=== PATIENT | female | born 1995 | race Caucasian/White ===

== ENCOUNTER 2019-12-31 19:02 | Emergency (ER) | payer OTHER ==
[2020-01-01] MEDS ORDERED: TORADOL PO ×2 (00:23→10:16)
[2020-01-01] MEDS ORDERED: ORPHENADRINE100 MG PO ×2 (00:23→10:16)
[2020-01-01 00:40] VITALS: BP 112/73
== END 2020-01-01 00:58 | disposition home or self-care (01) ==
LOC: ED 19:02
DX: M54.6 Pain in thoracic spine (principal)

== ENCOUNTER 2020-08-25 18:37 | Emergency (ER) | payer OTHER ==
[~2020-08-25] VITALS: Ht 172.7 cm; Wt 57.0 kg
[~2020-08-25 18:37] MED LIST: ORPHENADRINE100 MG PO; TORADOL PO
[2020-08-25 20:02] LABS: URINE BILIRUBIN - DIPSTICK NEGATIVE (NEGATIVE); URINE BLOOD DIPSTICK TRACE-LYSED (NEGATIVE); URINE COLOR YELLOW; URINE GLUCOSE - DIPSTICK NEGATIVE (NEGATIVE); URINE KETONE NEGATIVE (NEGATIVE); URINE NITRITE - DIPSTICK NEGATIVE (Negative); URINE PROTEIN - DIPSTICK NEGATIVE (NEG-TRACE); URINE SPECIFIC GRAVITY 1.025; URINE UROBILINOGEN - DIPSTICK 0.2 E.U./dL (0.2)
[2020-08-25 20:08] LABS: HEMATOCRIT 44.3 % (37.0-47.0); HEMOGLOBIN 14.5 g/dl (12.0-16.0); IMMATURE GRANULOCYTES 0.3 % (0.0-5.0); MEAN CELL VOLUME 91.3 fL CALC (80.0-100.0); MEAN CORPUSCULAR HGB 29.9 pG CALC (26.0-32.0); MEAN CORPUSCULAR HGB CONC 32.7 g/dL CAL (32.0-36.0); NEUT# 14.84 thou/uL (2.00-7.15); RED BLOOD COUNT 4.85 mill/uL (4.20-5.60); RED CELL DISTRI WIDTH 12.2 % (11.5-15.5)
[2020-08-25 20:12] LABS: URINE LEUK ESTERASE SMALL (NEGATIVE)
[2020-08-25 20:19] LABS: URINE RBC 0-2 RBC/hpf (0-5); URINE SQUAMOUS EPITHELIAL CELL FEW EPI/hpf (0-FEW)
[2020-08-25 20:24] LABS: ALBUMIN 4.8 g/dL (3.2-5.0); ALKALINE PHOSPHATASE 58 u/l (38-126); AMYLASE 73 u/l (30-110); ANION GAP 15 (6-22 (CALC)); BILIRUBIN, TOTAL 1.5 mg/dL (0.0-1.4); BUN 16 mg/dL (7-17); BUN/CREATININE RATIO 22 (12-20 (CALC)); CARBON DIOXIDE 25 mmol/l (22-30); CHLORIDE 103 mmol/l (95-108); CREATININE 0.7 mg/dL (0.5-1.0); GFR > 60 ML/MIN (>=60 (CALC)); GFR FOR AFR.AMER. > 60 ML/MIN (>=60 (CALC)); POTASSIUM 3.9 mmol/l (3.5-5.1); SGOT/AST 23 u/l (14-36); SODIUM 139 mmol/l (137-146); TOTAL PROTEIN 7.6 g/dL (6.3-8.2)
[2020-08-25] MEDS ORDERED: CIPROFLOXACN500 MG PO (22:36)
[2020-08-25 23:10] VITALS: BP 97/74
== END 2020-08-25 23:10 | disposition home or self-care (01) ==
LOC: ED 18:37
PROVIDERS: Emergency Medicine
DX: R11.2 Nausea with vomiting, unspecified (principal); N39.0 Urinary tract infection, site not specified; Z20.822 Contact with and (suspected) exposure to COVID-19

== ENCOUNTER 2021-08-28 19:50 | Emergency (ER) | payer OTHER ==
[~2021-08-28] VITALS: Ht 172.7 cm; Wt 65.0 kg
[~2021-08-28 19:50] MED LIST changes: +CIPROFLOXACN500 MG PO
[2021-08-28 23:38] LABS: HEMATOCRIT 41.8 % (37.0-47.0); HEMOGLOBIN 13.6 g/dl (12.0-16.0); IMMATURE GRANULOCYTES 0.1 % (0.0-5.0); MEAN CELL VOLUME 92.3 fL CALC (80.0-100.0); MEAN CORPUSCULAR HGB CONC 32.5 g/dL CAL (32.0-36.0); NEUT# 4.25 thou/uL (2.00-7.15); RED BLOOD COUNT 4.53 mill/uL (4.20-5.60); RED CELL DISTRI WIDTH 12.1 % (11.5-15.5)
[2021-08-28 23:41] LABS: URINE BILIRUBIN - DIPSTICK NEGATIVE (NEGATIVE); URINE BLOOD DIPSTICK NEGATIVE (NEGATIVE); URINE COLOR YELLOW; URINE GLUCOSE - DIPSTICK NEGATIVE (NEGATIVE); URINE KETONE NEGATIVE (NEGATIVE); URINE PH 6.5 (4.5-8.0); URINE UROBILINOGEN - DIPSTICK 0.2 E.U./dL (0.2)
[2021-08-28 23:48] LABS: URINE LEUK ESTERASE SMALL (NEGATIVE); URINE NITRITE - DIPSTICK NEGATIVE (Negative); URINE PROTEIN - DIPSTICK NEGATIVE (NEG-TRACE)
[2021-08-28 23:51] LABS: URINE EPITHELIAL CELLS FEW EPI/hpf (0-FEW); URINE RBC 0-2 RBC/hpf (0-5)
[2021-08-28 23:52] LABS: ALBUMIN 4.6 g/dL (3.2-5.0); ALKALINE PHOSPHATASE 66 u/l (38-126); ANION GAP 14 (6-22 (CALC)); BUN 14 mg/dL (7-17); BUN/CREATININE RATIO 18 (12-20 (CALC)); CARBON DIOXIDE 24 mmol/l (22-30); CHLORIDE 105 mmol/l (95-108); CREATININE 0.8 mg/dL (0.5-1.0); GFR > 60 ML/MIN (>=60 (CALC)); GFR FOR AFR.AMER. > 60 ML/MIN (>=60 (CALC)); POTASSIUM 3.6 mmol/l (3.5-5.1); SGOT/AST 21 u/l (14-36); SODIUM 139 mmol/l (137-146); TOTAL PROTEIN 7.6 g/dL (6.3-8.2); URINE BACTERIA MODERATE hpf
[2021-08-28 23:57] LABS: BILIRUBIN, TOTAL 0.5 mg/dL (0.0-1.4)
[2021-08-29 00:05] LABS: MYOGLOBIN 22 ng/mL (0 - 62)
[2021-08-29 00:55] LABS: ACT PARTIAL THROMBO TIME 24.6 SECONDS (20.0-32.5); PROTHROMBIN TIME 10.6 SECONDS (9.0-12.5)
[2021-08-29 00:59] LABS: D-DIMER 0.17 mg/L (0.19-0.60)
[2021-08-29] MEDS ORDERED: MECLIZINE25 MG PO (01:11)
[2021-08-29 01:20] VITALS: BP 100/50
== END 2021-08-29 01:25 | disposition home or self-care (01) ==
LOC: ED 19:50
PROVIDERS: Family Medicine
DX: R42 Dizziness and giddiness (principal)

== ENCOUNTER 2022-11-08 16:53 | Emergency (ER) | payer OTHER ==
[2022-11-08] VITALS (7 sets, daily range): BP systolic 95–125; BP diastolic 57–80
[~2022-11-08] VITALS: Ht 172.7 cm; Wt 59.0 kg
[~2022-11-08 16:53] MED LIST changes: +MECLIZINE25 MG PO
[2022-11-08] MEDS ORDERED: IBUPROFEN600 MG PO (18:17)
[2022-11-08] MEDS ORDERED: FLEXERIL5 M1 PO (18:17)
[2022-11-08] MEDS ORDERED: VOLTAREN1%GEL TOP (18:17)
== END 2022-11-08 18:31 | disposition home or self-care (01) ==
LOC: ED 16:53
DX: M54.6 Pain in thoracic spine (principal); F17.200 Nicotine dependence, unspecified, uncomplicated

== ENCOUNTER 2023-01-20 14:58 | Emergency (ER) | payer OTHER ==
[~2023-01-20] VITALS: Ht 172.7 cm; Wt 58.0 kg
[~2023-01-20 14:58] MED LIST changes: +FLEXERIL5 M1 PO; +IBUPROFEN600 MG PO; +VOLTAREN1%GEL TOP
[2023-01-20 15:14] VITALS: BP 124/85
[2023-01-20 15:15] VITALS: BP 117/72
[2023-01-20 15:30] VITALS: BP 119/78
[2023-01-20 15:45] VITALS: BP 119/73
[2023-01-20] MEDS ORDERED: PENICILLN VK500 MG PO (16:09)
[2023-01-20 16:15] VITALS: BP 102/60
[2023-01-20 16:22] VITALS: BP 119/73
== END 2023-01-20 16:23 | disposition home or self-care (01) ==
LOC: ED 14:58
DX: J02.9 Acute pharyngitis, unspecified (principal); Z20.822 Contact with and (suspected) exposure to COVID-19

== ENCOUNTER 2023-01-26 17:31 | Emergency (ER) | payer OTHER ==
[2023-01-26] VITALS (7 sets, daily range): BP systolic 97–108; BP diastolic 51–62
[~2023-01-26] VITALS: Ht 172.7 cm; Wt 56.0 kg
[~2023-01-26 17:31] MED LIST changes: +PENICILLN VK500 MG PO
[2023-01-26 19:06] LABS: BASO% 0.1 % (0-3); EOS% 0.1 % (0-8); HEMATOCRIT 38.7 % (37.0-47.0); HEMOGLOBIN 12.6 g/dl (12.0-16.0); IMMATURE GRANULOCYTES 0.4 % (0.0-5.0); LYMPH% 10.4 % (15-41); MEAN CELL VOLUME 87.8 fL CALC (80.0-100.0); MEAN CORPUSCULAR HGB 28.6 pG CALC (26.0-32.0); MEAN CORPUSCULAR HGB CONC 32.6 g/dL CAL (32.0-36.0); MONO% 12.3 % (2-13); NEUT# 6.55 thou/uL (2.00-7.15); NEUT% 76.7 % (42-76); RED BLOOD COUNT 4.41 mill/uL (4.20-5.60); RED CELL DISTRI WIDTH 12.2 % (11.5-15.5)
[2023-01-26 19:11] LABS: ALBUMIN 3.5 g/dL (3.2-5.0); ALKALINE PHOSPHATASE 90 u/l (38-126); ANION GAP 12 (6-22 (CALC)); BILIRUBIN, TOTAL 0.3 mg/dL (0.02-1.3); BUN 7 mg/dL (7-17); BUN/CREATININE RATIO 12 (12-20 (CALC)); CARBON DIOXIDE 26 mmol/l (22-30); CHLORIDE 99 mmol/l (95-108); CREATININE 0.6 mg/dL (0.5-1.0); GFR FOR AFR.AMER. > 60 ML/MIN (>=60 (CALC)); GFR OTHER RACES > 60 ML/MIN (>=60 (CALC)); POTASSIUM 3.3 mmol/l (3.5-5.1); SGOT/AST 48 u/l (14-36); SODIUM 133 mmol/l (137-146); TOTAL PROTEIN 6.7 g/dL (6.3-8.2)
[2023-01-26] MEDS ORDERED: ZITHROMAX Z-PA250 MG PO (19:49)
[2023-01-26] MEDS ORDERED: ROBITUSSIN AC10 ML PO (19:49)
== END 2023-01-26 21:16 | disposition home or self-care (01) ==
LOC: ED 17:31
PROVIDERS: Nurse Practitioner Family
DX: J18.9 Pneumonia, unspecified organism (principal); H10.9 Unspecified conjunctivitis; R23.8 Other skin changes

== ENCOUNTER 2023-01-28 17:57 | Emergency (ER) | payer OTHER ==
[~2023-01-28] VITALS: Ht 172.7 cm; Wt 57.0 kg
[2023-01-28] VITALS (7 sets, daily range): BP systolic 101–123; BP diastolic 67–84
[~2023-01-28 17:57] MED LIST changes: +ROBITUSSIN AC10 ML PO; +ZITHROMAX Z-PA250 MG PO
[2023-01-28 19:01] LABS: BASO% 0.1 % (0-3); EOS% 1.1 % (0-8); HEMATOCRIT 42.2 % (37.0-47.0); HEMOGLOBIN 13.4 g/dl (12.0-16.0); IMMATURE GRANULOCYTES 0.4 % (0.0-5.0); LYMPH% 9.6 % (15-41); MEAN CELL VOLUME 88.8 fL CALC (80.0-100.0); MEAN CORPUSCULAR HGB 28.2 pG CALC (26.0-32.0); MEAN CORPUSCULAR HGB CONC 31.8 g/dL CAL (32.0-36.0); MONO% 3.8 % (2-13); NEUT# 6.69 thou/uL (2.00-7.15); RED BLOOD COUNT 4.75 mill/uL (4.20-5.60); RED CELL DISTRI WIDTH 12.1 % (11.5-15.5)
[2023-01-28 19:13] LABS: ALKALINE PHOSPHATASE 91 u/l (38-126); BUN 9 mg/dL (7-17); BUN/CREATININE RATIO 14 (12-20 (CALC)); CARBON DIOXIDE 26 mmol/l (22-30); CHLORIDE 102 mmol/l (95-108); CREATININE 0.7 mg/dL (0.5-1.0); GFR FOR AFR.AMER. > 60 ML/MIN (>=60 (CALC)); GFR OTHER RACES > 60 ML/MIN (>=60 (CALC)); POTASSIUM 3.5 mmol/l (3.5-5.1); SGOT/AST 36 u/l (14-36); TOTAL PROTEIN 7.9 g/dL (6.3-8.2)
[2023-01-28 19:15] LABS: ANION GAP 16 (6-22 (CALC)); BILIRUBIN, TOTAL 0.5 mg/dL (0.02-1.3); SODIUM 140 mmol/l (137-146)
[2023-01-28] MEDS ORDERED: KEFLEX500 MG PO (22:48)
[2023-01-28] MEDS ORDERED: MEDDOSEPAK PO (22:48)
== END 2023-01-28 23:25 | disposition home or self-care (01) ==
LOC: ED 17:57
PROVIDERS: Family Medicine
DX: J18.9 Pneumonia, unspecified organism (principal); Z20.822 Contact with and (suspected) exposure to COVID-19
CPT/HCPCS: Q9967

== ENCOUNTER 2023-03-07 15:54 | Emergency (ER) | payer OTHER ==
[~2023-03-07] VITALS: Ht 172.7 cm; Wt 65.0 kg
[~2023-03-07 15:54] MED LIST changes: +KEFLEX500 MG PO; +MEDDOSEPAK PO
[2023-03-07] MEDS ORDERED: METHOCARBAMOL500 MG PO (18:09)
[2023-03-07] MEDS ORDERED: NAPROXEN500 MG PO (18:09)
[2023-03-07 18:41] VITALS: BP 110/66
== END 2023-03-07 18:42 | disposition home or self-care (01) ==
LOC: ED 15:54
DX: M25.512 Pain in left shoulder (principal)